=== PATIENT | female | born 1980 | race Caucasian/White ===

== ENCOUNTER 2017-11-29 11:14 | Outpatient (CLI) | payer OTHER ==
--- NOTE | 2017-11-29 13:34 | RAD ---
EXAM: MODIFIED BARIUM SWALLOW: HISTORY: Feeding difficulties. Dysphagia, unspecified. COMPARISON: None. EXPOSURE: 0.92 uGy*^cm2; 1.9 minutes. FINDINGS: In the presence of speech pathologist, the patient was administered thin liquid, solid consistencies. There is evidence of penetration with thin liquid consistencies while using a straw. No other inci dental penetration or aspiration. IMPRESSION: Penetration with thin liquid upon using straw. Please refer to speech pathology report for feeding r ecommendation. POS: [facility]
== END 2017-11-29 11:15 | disposition home or self-care (01) ==
LOC: RAD 11:14
PROVIDERS: ATTEND Psychiatry & Neurology Neurology
DX: R13.10 Dysphagia, unspecified (principal)
CPT/HCPCS: 74230; G8996-GN-CJ; G8997-GN-CJ

== ENCOUNTER 2017-12-01 14:38 | Outpatient (CLI) | payer OTHER ==
[~2017-12-01 14:38] MED LIST: Gadobenate Dimeglumine 529 MG/1 ML (20ML VIAL) ONE
--- NOTE | 2017-12-01 16:51 | MRI ---
BRAIN MRI WITH AND WITHOUT CONTRAST 12/01/17 COMPARISON: 08/14/13 HISTORY: Dyspnea, headache. TECHNIQUE: Multiplanar and multisequence MR imaging of the brain is provided with and without contrast. FINDINGS: The diffusion weighted imaging demonstrates no evidence for acute infarction. Axial gradient echo imaging reveals no evidence of intracranial hemorrhage. On the axial FLAIR imaging there is a lesion within the periventricular white matter adjacent to the frontal horn of the left lateral ventricle and anterior to the left putamen measuring approximately 7 mm in AP dimension, slightly more conspicuous than on the prior exam. There is a subtle focus of increased FLAIR signal within the subcortical white matter in the left ins ular region on FLAIR image 14, which is probably new when compared to the prior exam. There is a punctate focus of increased signal intensity on FLAIR imaging within the subcortical white matter on the right in the insular region anterior to the putamen, slightly more conspicuous than on the prior exam. There is no T2 or FLAIR abnormality within the brain stem or posterior fossa. The paranasal sinuses a ppear grossly unremarkable as do the osseous structures. No abnormal enhancement is identified. There is a hypoplastic distal right vertebral artery. IMPRESSION: There are a few foci of increased signal intensity on the FLAIR imaging within the periventricular an d subcortical white matter as above, only slightly more prominent than on the 2013 examination. This may be on the basis of small vessel disease or demyelinating disease in the proper clinical setting. Clinical correlation is essential. POS: [facility]
--- NOTE | 2017-12-01 16:57 | MRI ---
MRI OF CERVICAL SPINE WITH AND WITHOUT CONTRAST 12/01/17 COMPARISON: 01/02/08. HISTORY: Dyspnea, pain, and headaches. TECHNIQUE: Multiplanar and multisequence MR imaging of the cervical spine is provided with and without contrast. FINDINGS: The sagittal STIR imaging demonstrates no focal area of osseous marrow edema. Cervical vertebral body height and alignment appears within normal limits. C2-3: Intervertebral disc height and signal intensity is within normal limits with no significant ce ntral canal or neural foraminal stenosis. C3-4: Intervertebral disc height and signal intensity is within normal limits with no significant [place] tral canal or neural foraminal stenosis. C4-5: Intervertebral disc height and signal intensity is within normal limits with no significant [place] tral canal or neural foraminal stenosis. C5-6: Intervertebral disc height and signal intensity is within normal limits with no significant [place] tral canal or neural foraminal stenosis. C6-7: Intervertebral disc height and signal intensity is within normal limits with no significant [place] tral canal or neural foraminal stenosis. C7-T1: Intervertebral disc height and signal intensity is within normal limits with no significant ce ntral canal or neural foraminal stenosis. There is no focal area of abnormal signal intensity within the cervical cord. Postcontrast imaging demonstrates no abnormal enhancement. IMPRESSION: Unremarkable contrast enhanced MRI of the cervical spine. POS: [facility]
== END 2017-12-01 14:39 | disposition home or self-care (01) ==
LOC: SCSMRI 14:38
PROVIDERS: ATTEND Psychiatry & Neurology Neurology
DX: R13.10 Dysphagia, unspecified (principal); R51 Headache; R93.8 Abnormal findings on diagnostic imaging of other specified body structures
CPT/HCPCS: 70553; 72156; A9579

== ENCOUNTER 2019-01-23 16:19 | Outpatient (CLI) | payer OTHER ==
--- NOTE | 2019-02-08 15:48 | MMO ---
Bilateral MAMMO Bilat Screen [facility]. CLINICAL HISTORY: Patient is 38 years old and is seen for screening. VIEWS: The views performed were: bilateral craniocaudal with tomosynthesis; bilateral mediolateral oblique with tomosynthesis; and bilateral exaggerated craniocaudal. MAMMOGRAM FINDINGS: There are scattered fibroglandular densities. There are no suspicious masses, suspicious calcifications, or new areas of architectural distortion. IMPRESSION: THERE IS NO MAMMOGRAPHIC EVIDENCE OF MALIGNANCY. A ROUTINE FOLLOW-UP MAMMOGRAM IN 1 YEAR IS RECOMMENDED. THE RESULTS OF THIS EXAM WERE SENT TO THE PATIENT. ACR BI-RADS Category 1 - Negative MAMMOGRAPHY NOTE: 1. A negative mammogram report should not delay a biopsy if a dominant of clinically suspicious mass is present. 2. Approximately 10% to 15% of breast cancers are not detected by mammography. 3. Adenosis and dense breasts may obscure an underlying neoplasm.
== END 2019-01-23 16:20 | disposition home or self-care (01) ==
LOC: BICMAMMO 16:19
PROVIDERS: ATTEND Family Medicine
DX: Z12.31 Encounter for screening mammogram for malignant neoplasm of breast (principal)
CPT/HCPCS: 77063; 77067

== ENCOUNTER 2019-02-02 15:02 | Outpatient (CLI) | payer OTHER ==
--- NOTE | 2019-02-02 16:32 | MRI ---
FExam: Brain MRI with and without contrast HISTORY: Paresthesias. Follow-up from previous MRI COMPARISON: 12/01/2017, 08/04/2013 FINDINGS: Gradient echo sequence: No hemorrhage Calvarium: Appropriate T1 marrow signal intensity Midline brain parenchyma: Unremarkable Cerebrum:No parenchymal mass, mass effect or midline shift. Brain volume, age-appropriate. Cortical g ray-white matter differentiation is preserved. Previously noted T2 and FLAIR white matter hyperintens ities, periventricular in distribution, are less evident on the current examination. Ventricles: No evidence of hydrocephalus. Sinuses and mastoid air cells: Adequate aeration Diffusion: Central arterial flow is maintained. Absent restricted diffusion. Postcontrast images: No pathologic enhancement of the brain parenchyma. IMPRESSION: 1. Previously noted periventricular T2 and FLAIR white matter hyperintensities are less evident on th e current examination. 2. Absent restricted diffusion. No acute infarct. 3. No pathologic enhancement brain parenchyma
== END 2019-02-02 15:03 | disposition home or self-care (01) ==
LOC: BICMRI 15:02
PROVIDERS: ATTEND Nurse Practitioner Acute Care
DX: R20.2 Paresthesia of skin (principal); R90.89 Other abnormal findings on diagnostic imaging of central nervous system
CPT/HCPCS: 70553

== ENCOUNTER 2020-04-11 14:28 | Outpatient (CLI) | payer OTHER ==
--- NOTE | 2020-04-11 15:20 | MMO ---
Bilateral MAMMO Bilat Screen [facility]. CLINICAL HISTORY: Patient is 39 years old and is seen for screening. The patient has no family history of breast cancer. The patient has no personal history of cancer. VIEWS: The views performed were: bilateral craniocaudal with tomosynthesis and bilateral mediolateral oblique with tomosynthesis. FILMS COMPARED: The present examination has been compared to a prior imaging study performed at [facility] on 01/23/2019. This study has been interpreted with the assistance of computer-aided detection. MAMMOGRAM FINDINGS: There are scattered fibroglandular densities. There are no suspicious masses, suspicious calcifications, or new areas of architectural distortion. IMPRESSION: THERE IS NO MAMMOGRAPHIC EVIDENCE OF MALIGNANCY. A ROUTINE FOLLOW-UP MAMMOGRAM IN 1 YEAR IS RECOMMENDED. THE RESULTS OF THIS EXAM WERE SENT TO THE PATIENT. ACR BI-RADS Category 1 - Negative MAMMOGRAPHY NOTE: 1. A negative mammogram report should not delay a biopsy if a dominant of clinically suspicious mass is present. 2. Approximately 10% to 15% of breast cancers are not detected by mammography. 3. Adenosis and dense breasts may obscure an underlying neoplasm. Reported by: NOMI SMITH MD Electonically Signed: [id number]
== END 2020-04-11 14:29 | disposition home or self-care (01) ==
LOC: BICMAMMO 14:28
PROVIDERS: ATTEND Family Medicine
DX: Z12.31 Encounter for screening mammogram for malignant neoplasm of breast (principal)
CPT/HCPCS: 77063; 77067

== ENCOUNTER 2021-02-19 13:30 | Outpatient (CLI) | payer OTHER | END 2021-02-19 13:31 | disposition home or self-care (01) | LOC: BICCT 13:30 | PROVIDERS: ATTEND Physician Assistant | DX: N12 Tubulo-interstitial nephritis, not specified as acute or chronic (principal); N20.0 Calculus of kidney; N28.89 Other specified disorders of kidney and ureter; R19.5 Other fecal abnormalities; Z97.5 Presence of (intrauterine) contraceptive device | CPT/HCPCS: 74176 ==

== ENCOUNTER 2023-05-11 14:57 | Outpatient (CLI) | payer BC | END 2023-05-11 14:58 | disposition home or self-care (01) | LOC: BICMRI 14:57 | PROVIDERS: ATTEND Orthopaedic Surgery Hand Surgery | DX: M67.441 Ganglion, right hand (principal); M65.9 Synovitis and tenosynovitis, unspecified ==